=== PATIENT | female | born 1955 | race Caucasian/White ===

== ENCOUNTER 2018-01-27 14:09 | Outpatient (CLI) | payer BC ==
--- NOTE | 2018-01-27 14:42 | RAD ---
3 VIEWS LUMBOSACRAL SPINE: Date: 01/27/18 COMPARISON: None. HISTORY: Low back pain for 1 week. FINDINGS: Three views of the lumbosacral spine show normal height and alignment of the vertebral bodies and int ervertebral discs without fracture or subluxation. No significant degenerative changes are seen. IMPRESSION: No significant lumbar spine abnormality. POS: [facility]
== END 2018-01-27 14:10 | disposition home or self-care (01) ==
LOC: NAV RAD 14:09
PROVIDERS: ATTEND Family Medicine
DX: M54.41 Lumbago with sciatica, right side (principal)
CPT/HCPCS: 72100